=== PATIENT | female | born 1965 | race Caucasian/White ===

== ENCOUNTER 2018-08-17 10:19 | Emergency (ER) | payer OTHER ==
[~2018-08-17] VITALS: Ht 154.9 cm; Wt 50.0 kg
[2018-08-17 10:34] VITALS: Ht 154.9 cm; Wt 50.0 kg
[2018-08-17] MEDS ORDERED: TORADOL10 MG PO (14:15)
[2018-08-17 14:47] VITALS: BP 100/74
== END 2018-08-17 14:47 | disposition home or self-care (01) ==
LOC: D.ER 10:19
DX: S00.12XA Contusion of left eyelid and periocular area, initial encounter (principal); W18.30XA Fall on same level, unspecified, initial encounter; Y93.E9 Activity, other interior property and clothing maintenance; Y92.012 Bathroom of single-family (private) house as the place of occurrence of the external cause; S13.9XXA Sprain of joints and ligaments of unspecified parts of neck, initial encounter